=== PATIENT | male | born 1965 | race Caucasian/White ===

== ENCOUNTER 2017-10-31 12:09 | Emergency (ER) | payer OTHER ==
[~2017-10-31] VITALS: Ht 175.3 cm; Wt 95.3 kg
[2017-10-31 12:21] VITALS: BP 106/68
--- NOTE | 2017-10-31 12:30 | Emergency Room Report ---
History of Present Illness General Chief Complaint: Upper Extremity Injury Source: Patient Present Illness HPI 51 yo male patient presents to ER complaining of right elbow pain for "a few days". Patient reports moving an engine into a car bed and states he "strained" his elbow at that time. Reports worsening of pain since that time. Reports pain in elbow with "finger movement." Reports still able to use hand. Denies use of medication for relief of symptoms. Denies hx of right elbow injury or surgery. Reports right hand dominant. Denies fever, chest pain, SOB. Allergies: Coded Allergies: No Known Allergies (Unverified , 10/31/17) Patient History Past Medical History: see triage record Reviewed Nursing Documentation: PMH: Agreed; PSxH: Agreed Nursing Documentation-PMH Past Medical History: No Stated History Review of Systems All Other Systems: negative except mentioned in HPI Physical Exam Vital Signs Date Time Temp Pulse Resp B/P (MAP) Pulse Ox O2 Delivery O2 Flow Rate FiO2 10/31/17 12:21 98.3 84 18 106/68 94 Room Air 98.2 Sp02 EP Interpretation: reviewed, normal General Appearance: well appearing, no apparent distress, alert, GCS 15, non- toxic Head: normocephalic, atraumatic Eyes: bilateral eye normal inspection, bilateral eye PERRL ENT: hearing grossly normal, normal pharynx, no angioedema, normal voice, uvula midline, moist mucus membranes Neck: full range of motion Respiratory: lungs clear, normal breath sounds, no rhonchi, no respiratory distress, no accessory muscle use, no wheezing, speaking full sentences Cardiovascular #1: regular rate, rhythm, no edema Cardiovascular #2: 2+ radial (R), 2+ radial (L) Musculoskeletal: back normal, digits/nails normal, gait/station normal, normal range of motion, other - NVI, radial nerve intact, AIN and PIN intact, Tinel sign negative, sensation intact to light touch, tender - right lateral epicondyle Neurologic: alert, oriented x3, responsive, motor strength/tone normal, sensory intact Psychiatric: mood/affect normal Skin: no rash Lymphatic: no adenopathy Medical Decision Making PA Attestation Dr. Willis is my supervising Physician whom patient management has been discussed with. Diagnostic Impression: Primary Impression: Lateral epicondylitis, right elbow ER Course Pt. presents to the ED c/o right elbow pain. Ddx considered but are not limited to fracture, sprain, strain, contusion, dislocation, epicondylitis, carpal tunnel, bursitis. No erythema, no warmth to touch, no fever, nontoxic appearing, low suspicion for septic joint. No swelling of elbow, low suspicion for bursitis. Vital signs: are WNL, pt. is afebrile Ordered X-ray and pain medication. ER COURSE An X-ray of the right elbow was ordered, results show no fracture, per the preliminary reading. PE: Pain with forced wrist extension. No pain with forced wrist flexion. Likely lateral epicondylitis. Pain Medication provided in ED. Sling was applied to the right elbow was checked afterwards by me showing good alignment and support with distal neurovascular functioning intact. Patient instructed on RICE method: rest, ice, compression, elevation. Patient instructed to WBAT. Advised to get forearm band. Followup with primary care provider for medical clearance to return to activities. Patience required, do not begin heavy activity workload again. DISCHARGE: -Rx provided for Tylenol for pain symptoms. At this time pt. is stable for d/c to home. Patient is resting comfortably, in no acute distress, nontoxic appearing, talking without difficulty. Will provide printed patient care instructions, and any necessary prescriptions. Patient instructed to follow with primary care provider in 3 - 5 days and to request further orthopedic follow-up. Care plan and follow up instructions have been discussed with the patient prior to discharge. Take medications as directed. Patient questions asked and answered. Patient reports understanding and agreement to treatment plan. ER precautions given, patient instructed to return to ER immediately for any new or worsening of symptoms. Other X-Ray Diagnostic Results Other X-Ray Diagnostic Results : X-Ray ordered: right elbow # of Views/Limited Vs Complete: 3 View Indication: Pain EP Interpretation: Yes PA Xray: Interpretation reviewed, by supervising MD, and agrees with findings. Interpretation: no dislocation, no soft tissue swelling, no fractures Impression: No acute disease PRABHA Scribe Text Augusto Cooley PA-C Last Vital Signs Date Time Temp Pulse Resp B/P (MAP) Pulse Ox O2 Delivery O2 Flow Rate FiO2 10/31/17 12:21 98.3 84 18 106/68 94 Room Air 98.2 Disposition: HOME, SELF-CARE Condition: Stable Scripts Acetaminophen* (TYLENOL EXTRA STRENGTH*) 500 Mg Tablet 500 MG ORAL Q8H PRN for Prn Headache/Temp > 101, #30 TAB 0 Refills Prov: Byron Cooley 10/31/17 Patient Instructions: Lateral Epicondylitis With Rehab-SportsMed, Sprain Elbow Additional Instructions: Patient instructed to follow up with primary care provider and discuss further referral to orthopedics. Patient instructed on RICE method: rest, ice, compression, elevation. Patient instructed to WBAT. Take medications as directed. Patient questions asked and answered. ER precautions given, patient instructed to return to ER immediately for any new or worsening of symptoms. Byron Cooley Oct 31, 2017 12:30
[2017-10-31] MEDS ORDERED: TYLENOL EXTRA500 MG ORAL (12:41)
[2017-10-31 13:28] VITALS: BP 106/68
--- NOTE | 2017-11-01 11:50 | Diagnostic Imaging Report ---
Indication: Pain Findings: 3 views of the right elbow were obtained. No acute fractures, malalignment, erosions or periostitis are identified. Bone mineralization is within normal limits. Soft tissues are unremarkable. Impression: Negative examination of the elbow.
== END 2017-10-31 13:29 | disposition home or self-care (01) ==
LOC: EMR 12:20
DX: M77.11 Lateral epicondylitis, right elbow (principal)
CPT/HCPCS: 99283